=== PATIENT | male | born 1980 | race Caucasian/White ===

== ENCOUNTER 2024-09-12 11:56 | Emergency (ER) | payer MEDICAID, SELFPAY ==
[2024-09-12 11:58] VITALS: BP 98/70
[2024-09-12 12:15] LABS: % Basophils 0.9 % (0-2); % Eosinophils 3.7 % (0-6); % Immature Granulocytes 0.3 % (0-0.5); % Lymphocytes 21.9 % (20.5-51.1); % Monocytes 6.4 % (1.7-9.3); % Neutrophils 66.8 % (42.2-75.2); Absolute Basophils 0.1 10^3/uL (0-0.2); Absolute Eosinophils 0.4 10^3/uL (0-0.7); Absolute Lymphocytes 2.2 10^3/uL (1.2-3.4); Absolute Monocytes 0.7 10^3/uL (0.1-0.6); Absolute Neutrophils 6.8 10^3/uL (1.4-6.5); Hematocrit 50.4 % (39.0-52.0); Mean Corp Hgb Conc. 33.7 g/dL (33.0-37.0); Mean Corpuscular Volume 88.9 fL (80.0-94.0); Mean Platelet Volume 9.7 fL (7.4-10.4); Nucleated Red Blood Cells % 0 % (-); Platelet Count 320 10^3/uL (130-400); Red Blood Cell Count 5.67 10^6/uL (4.70-6.10); Red Cell Dist. Width 11.9 % (11.5-14.5); White Blood Cell Count 10.2 10^3/uL (4.8-10.8)
[2024-09-12 12:33] LABS: ALT (SGPT) 54 U/L (0-50); AST (SGOT) 37 U/L (17-59); Albumin 4.6 g/dl (3.5-5.0); Alkaline Phosphatase 69 U/L (38-126); Blood Urea Nitrogen 21 mg/dl (9-20); Calcium 9.8 mg/dl (8.4-10.2); Carbon Dioxide 26 mmol/L (22-30); Chloride 105 mmol/L (98-107); Glucose 98 mg/dl (70-99); Sodium 141 mmol/L (135-145); Total Bilirubin 0.7 mg/dl (0.2-1.3); Total Protein 7.7 g/dl (6.3-8.2); eGFR > 60.00
--- NOTE | 2024-09-12 13:19 | ED.GENMED ---
History of Present Illness
General
Chief Complaint: Dizziness
Source: patient
Time Seen by Provider: 09/12/24 13:06
History of Present Illness
History of Present Illness:
44yoM with a history of hypertension and GERD presenting for evaluation of a headache. He woke up 5 days ago with a bitemporal headache. Headache has been constant since then and is described as a tension headache. Pain is currently a 6/10 in
severity. He also reports nausea and has had 3 episodes of vomiting over the past 5 days, last episode was yesterday. Additionally, he is having intermittent blurred vision, dizziness, and paresthesias of his lower extremities. He reports tingling
in the back of his legs and the bottom of his feet bilaterally. He checked his blood pressure yesterday which was 188/115. He ran out of his blood pressure medications about 2 weeks ago. He takes lisinopril-HCTZ but is unsure of the dose.
Past History
Past History
ED Past Medical History: None
ED Past Surgical History: Tonsilectomy
Social History
Tobacco: Non-smoker
Personal: Single
Living: with family
Employment: Employed
Phy Exam
General Physical Exam
General Presentation: well appearing and no apparent distress
General age: appears stated age
General Skin: warm and dry
General Habitus: normal
General Mental: alert
General Hydration: appears well hydrated
ENT Exam
ENT Exam: normocephalic
Eye Exam
Eye Exam: PERRL, EOMI and visual florence normal
Cardiovascular Exam
Cardiovascular Exam: regular rate/rhythm and no murmur
Pulmonary Exam
Pulmonary Exam: lungs clear, no respiratory distress, no rales and no crackles
Neurological Exam
Neurological Exam: alert, CN II-XII intact, no motor deficits, normal reflexs, no sensory deficits and other (CN 2-12 intact. PERRL. EOMs intact. Visual florence normal. 5/5 strength and gross sensation intact in all extremities. Negative drift x4.
Normal finger to nose and heel to [place] bilaterally. Normal gait. 2+ patellar reflexes bilaterally. )
[place] Coma Scale
Eye Opening: Spontaneous
Verbal Response: Oriented
Motor Response: Obeys Commands
GCS Total Score: 15
Skin Exam
Skin Exam: normal color and warm/dry
Psychiatric Exam
Psychiatric Exam: normal mood/affect
Course
Orders/Labs/Results
Orders:
Orders
09/12/24 12:00
Electrocardiogram (*1) Urgent
Reason for Study: Vertigo / Dizzy
EKG- Treatment ONCE
09/12/24 12:08
Complete Blood Count/With Diff Urgent
Comprehensive Metabolic Panel Urgent
09/12/24 13:18
Visual Acuity- Treatment ONCE
09/12/24 13:19
CT Head W/o Iv Contrast Urgent
Comment:
Reason For Exam: headache, dizziness
09/12/24 13:28
Troponin I Urgent
Urinalysis Reflex To Culture Urgent
Date Specimen was Collected: 09/12/24
Time Specimen was Collected: 13:23
Abnormal Lab Results
09/12/24
12:08
Absolute Neuts (auto) 6.8 H 10^3/uL
(1.4-6.5)
Absolute Monos (auto) 0.7 H 10^3/uL
(0.1-0.6)
BUN 21 H mg/dl
(9-20)
ALT 54 H U/L
(0-50)
09/12/24 12:08
09/12/24 12:08
Vital Signs
Initial and Last Documented VS:
Initial Vital Signs
Temp Pulse Resp BP Pulse Ox
97.5 F 78 18 98/70 97
09/12/24 11:58 09/12/24 11:58 09/12/24 11:58 09/12/24 11:58 09/12/24 11:58
Last Documented Vital Signs
Temp Pulse Resp BP Pulse Ox
97.5 F 80 18 148/99 99
09/12/24 11:58 09/12/24 13:25 09/12/24 13:25 09/12/24 13:25 09/12/24 13:25
MDM/Problems Addressed
Differential Diagnosis Includes:
44yoM here with a bitemporal headache x 5 days. Also has multiple other symptoms including intermittent blurred vision and paresthesias in the back of his legs bilaterally. No CP. BP 98/70 in triage. Remainder of vitals stable. He is well appearing
in no distress. No focal neuro deficits on exam and patient ambulating normally. Differential diagnosis includes but is not limited to: tension headache, migraine, symptomatic hypertension, less likely CVA
Initial ED plan: Basic labs and EKG obtained in triage. Labs overall unremarkable. EKG shows NSR without ischemic changes. Will check troponin, visual acuity, and CT head. Patient declines analgesics for his headache.
*EKG
Interpreted by ED Provider?: Yes
EKG Intrepretation Date: 09/12/24
Heart Rate: 73
Rate: normal
Rhythm: sinus
[place]: normal axis
Interval: normal interval
QRS Pattern: normal QRS
Ischemia: no ischemia
*Critical Care Note
Total Time (30-74mins, 75-104mins- exclusive of procedures): Not Applicable
Update Note
Update Note:
Visual acuity 20/30 R eye, 20/25 L eye. Troponin WNL. CT head is negative for acute findings. BP 148/99 on recheck.
Patient feeling much better on reassessment. All his symptoms have resolved with the exception of a 3/10 headache. He states he just got out of a [facility] after 5 years and thinks his symptoms may be from anxiety from the readjustment. He was
given a prescription for blood pressure medications at his urgent care visit earlier today. [facility] number provided for him to establish with a PCP. ED return precautions discussed. He expressed understanding and is agreeable to plan. He was
discharged in stable condition.
ED Attending Note
-
Portions of this chart may have been created with voice recognition software.� Occasional wrong word or��sound alike� substitutions may have occurred due to the inherent limitations of voice recognition software.
Discharge Plan
Departure
Patient Disposition: Home (Routine Discharge)
Date of Disposition: 09/12/24
Time of Disposition: 15:08
Patient with high blood pressure during this ER visit?: Yes
Discharge Problem:
Acute nonintractable headache
Instructions: Headache, Adult ED
Prescriptions:
No Action
amoxicillin 875 MG tablet
875 mg PO BID Qty: 20 0RF
hydrocodone-acetaminophen 5 MG/500 MG tablet
1 tab PO .Q4-6HPRN PRN (Reason: PAIN) Qty: 20 0RF
Referrals:
NONE,* [Family Provider] -
Activity Restrictions/Additional Instructions:
Call the [facility] ([phone]) to schedule a follow-up with a primary care provider. Return to the ER with any new or worsening symptoms.
Interventions
Interventions:
*Risk Screen - Suicide Last Done: 09/12/24 11:58
*General Assessment Last Done: 09/12/24 11:58
*Neglect/Abuse Screening Last Done: 09/12/24 11:58
*ED COVID-19 Vaccine History Last Done: 09/12/24 11:58
*Nursing Disposition Last Done: 09/12/24 15:50
ED- Neurological Assessment Last Done: 09/12/24 13:24
ED- Cardiac Assessment Last Done: 09/12/24 15:51
ED Swallowing Screen Last Done: 09/12/24 13:26
Discharge Date and Time
Discharge Date/Time: 09/12/24 15:52
Print Language: ERITREAN
[2024-09-12 13:24] VITALS: BMI 32.4
[2024-09-12 13:25] VITALS: BP 148/99
[2024-09-12 14:05] LABS: Troponin I < 0.012 ng/ml
[2024-09-12 14:14] LABS: Urine Albumin Negative (Neg - Trace); Urine Bilirubin Negative (Negative); Urine Character Clear (Clear); Urine Color Yellow; Urine Glucose Negative (Negative); Urine Ketone Negative (Negative); Urine Leukocyte Negative (Negative); Urine Nitrite Negative (Negative); Urine Occult Blood Negative (Negative); Urine Urobilinogen Negative (Neg - 1+)
== END 2024-09-12 15:52 | disposition home or self-care (01) ==
LOC: EMR 11:56
PROVIDERS: Emergency Medicine; Physician Assistant; EMERGENCY PHYSICIAN Emergency Medicine
DX: R51.9 Headache, unspecified (principal); I10 Essential (primary) hypertension; K21.9 Gastro-esophageal reflux disease without esophagitis
CPT/HCPCS: 99284; 70450; 80053; 81003; 84484; 85025; 93005

== ENCOUNTER 2025-02-06 03:12 | Emergency (ER) | payer OTHER, SELFPAY ==
[2025-02-06 03:15] VITALS: BP 152/93
[2025-02-06 03:26] VITALS: BP 123/75
[2025-02-06 03:54] LABS: COVID-19 Antigen Negative (Negative)
--- NOTE | 2025-02-06 04:49 | ED.GENMED ---
History of Present Illness
General
Chief Complaint: Cold/Flu/URI Symptoms
Source: patient
Exam Limitations: none
Time Seen by Provider: 02/06/25 04:40
Nursing documentation reviewed up to this point in time: agreed with
History of Present Illness
History of Present Illness:
This is a 44-year-old gentleman with history of hypertension, GERD who complains of URI symptoms, cough, nasal congestion, fever, aches that began Monday, 5 days ago. His son has had very similar URI symptoms. Patient works for a [employer] company
and has continued to work full-time throughout the week. Sporadically taking Tylenol versus ibuprofen with last dose 24 hours ago.
Past History
Past History
ED Past Medical History: GERD and HTN
ED Past Surgical History: Tonsilectomy
Social History
Tobacco: Non-smoker
Personal: Single
Living: with family
Employment: Employed
Family History
Family History: Other (Noncontributory)
Phy Exam
Physical Exam
Physical Exam:
GENERAL: 44-year-old gentleman appears his stated age, awake and alert, appears in no acute distress. Exhibits mild nasal, stuffy voice but no significant cough noted during exam. Respirations are easy and nonlabored. Oral temperature 99.3 �F.
EYE: pupils equal and reactive. anicteric
NECK: Supple, nontender, no meningismus, no significant adenopathy.
ENT: posterior pharynx is clear, oral mucosa is moist. TM clear b/l, nares have moderately boggy injected turbinates with scant clear rhinorrhea.
CARDIAC: Regular rate and rhythm. no murmur.
LUNGS: Clear breath sounds bilaterally, no acute respiratory distress, no wheezes/rales/rhonchi
ABDOMEN: Soft, nondistended, without focal tenderness, no r/g, no cvat. normoactive BS.
NEUROLOGICAL: Alert and oriented x3, no focal neuro deficits. Gait is pandya and steady.
SKIN: Warm and dry, normal color, mild sunburn noted of face, upper arms. (pt has been working outdoors in ailin weather this week)
MUSCULOSKELETAL: No C/C/E. peripheral pulses are full and equal b/l. No palpable tenderness.
PSYCH: Normal and appropriate interaction.
Course
Orders/Labs/Results
Orders:
Orders
02/06/25 03:31
COVID-19 Antigen Urgent
Source: Nasal Swab
Influenza A+B Rapid Molecular Urgent
MELI Source: Nasal Swab
Specimen Description:
02/06/25 04:49
Acetaminophen [Tylenol] 1,000 mg PO NOW STA
Vital Signs
Temp: 99.3 F
Initial and Last Documented VS:
Initial Vital Signs
Temp Pulse Resp BP Pulse Ox
98.1 F 103 24 152/93 94
02/06/25 03:15 02/06/25 03:15 02/06/25 03:15 02/06/25 03:15 02/06/25 03:15
Last Documented Vital Signs
Temp Pulse Resp BP Pulse Ox
99.3 F 93 25 123/75 93
02/06/25 04:00 02/06/25 03:45 02/06/25 03:45 02/06/25 03:26 02/06/25 03:45
MDM/Problems Addressed
Differential Diagnosis Includes:
Patient presents with 5-day history of URI symptoms. Concern for COVID-19, influenza, other viral URI.
Overall nontoxic in appearance. Appears euvolemic.
Low-grade fever noted.
He has been working outdoors and Monday, somewhat hot weather which I suspect is aggravating his symptoms.
He has been tolerating oral fluids well.
COVID is negative but influenza testing is positive for influenza B.
As symptoms began 5 days ago, Tamiflu is not indicated.
Recommend supportive measures, rest, staying well-hydrated on a daily basis, continuing Tylenol versus ibuprofen as needed for fever, aches.
Recommend he stay home from work until fever free and a work note has been provided to be out of work today, Monday with plan to return to work on February 10.
Prompt follow-up with PCP for recheck. Patient has been referred to our family practice residency clinic for follow-up.
Chronic conditions affecting care: HTN
*Pulse Oximetry
Patient hypoxic: no
*Critical Care Note
Total Time (30-74mins, 75-104mins- exclusive of procedures): Not Applicable
ED Attending Note
-
Portions of this chart may have been created with voice recognition software.� Occasional wrong word or��sound alike� substitutions may have occurred due to the inherent limitations of voice recognition software.
Discharge Plan
Departure
Patient Disposition: Home (Routine Discharge)
Date of Disposition: 02/06/25
Time of Disposition: 04:49
Patient with high blood pressure during this ER visit?: No
Condition: Good
Discharge Problem:
Influenza B
Instructions: Flu in adults - Discharge instructions
Prescriptions:
No Action
amoxicillin 875 MG tablet
875 mg PO BID Qty: 20 0RF
hydrocodone-acetaminophen 5 MG/500 MG tablet
1 tab PO .Q4-6HPRN PRN (Reason: PAIN) Qty: 20 0RF
Referrals:
[facility] [Provider Group] - Call in 1-3 days for appt
UNKNOWN - PT DOES,NOT KNOW [Family Provider] -
Stand Alone Forms: Return to Work
Interventions
Interventions:
*Risk Screen - Suicide Last Done: 02/06/25 03:15
*General Assessment Last Done: 02/06/25 03:33
*Neglect/Abuse Screening Last Done: 02/06/25 03:15
*ED- Fall Risk Assessment Last Done: 02/06/25 03:15
*ED COVID-19 Vaccine History Last Done: 02/06/25 03:15
ED- Pulmonary Assessment Last Done: 02/06/25 03:33
Discharge Date and Time
Print Language: YAKUT
[2025-02-06] MEDS: TYLENOL 1000 MG PO (04:55)
[2025-02-06 05:00] VITALS: BP 117/70
== END 2025-02-06 05:13 | disposition home or self-care (01) ==
LOC: EMR 03:12
PROVIDERS: EMERGENCY PHYSICIAN Emergency Medicine
DX: J10.1 Influenza due to other identified influenza virus with other respiratory manifestations (principal); I10 Essential (primary) hypertension; K21.9 Gastro-esophageal reflux disease without esophagitis
CPT/HCPCS: 99282; 87502; 87811